=== PATIENT | female | born 1960 ===

== ENCOUNTER 2024-06-12 05:26 | Day surgery (SDC) | payer OTHER ==
[2024-06-07 11:29] VITALS: BMI 27.8
[~2024-06-12 05:26] MED LIST: CYCLOPENTOLATE HCL 1% OPHTH SOLN 2 ML BOTTLE OP SCH; PHENYLEPHRINE 2.5% OPHTH SOLN 15 ML BOTTLE OP SCH; TROPICAMIDE 1% OPHTH SOLN 15 ML BOTTLE OP SCH
[2024-06-12] MEDS ORDERED: CYCLOPENTOLATE HCL 1% OPHTH SOLN 2 ML BOTTLE ONE (07:29)
[2024-06-12] MEDS ORDERED: PHENYLEPHRINE 2.5% OPTHALMIC DROP 2ML BOTTLE ONE (07:29)
[2024-06-12] MEDS ORDERED: TROPICAMIDE 1% OPHTH SOLN 15 ML BOTTLE ONE (07:29)
[2024-06-12] MEDS ORDERED: LIDOCAINE HCL/PF 2% SDV 5ML VIAL ONE (07:39)
[2024-06-12] MEDS ORDERED: EPINEPHrine 1:1000 P/F - 1 MG/ML AMP ONE (07:39)
[2024-06-12] MEDS ORDERED: BUPIVACAINE HCL/PF 0.75% 10 ML VIAL ONE (07:39)
[2024-06-12] MEDS ORDERED: LIDOCAINE HCL/PF 1% SDV 5ML VIAL ONE (07:39)
[2024-06-12] MEDS ORDERED: POVIDONE-IODINE 5% OPHTHALMIC PREP 30 ML SOLUTION ONE (07:40)
[2024-06-12] MEDS ORDERED: TRYPAN BLUE 0.5 ML DISP.SYRIN ONE (07:40)
[2024-06-12] MEDS: CYCLOPENTOLATE HCL 1% OPHTH SOLN 2 ML BOTTLE OP SCH (07:45)
[2024-06-12] MEDS: POLYMYXIN B SULFATE/TMP 10 ML OPHTHALMIC SOLUTION OD SCH (07:52)
[2024-06-12] MEDS: TROPICAMIDE 1% OPHTH SOLN 15 ML BOTTLE OP SCH (07:52)
[2024-06-12] MEDS: PHENYLEPHRINE 2.5% OPHTH SOLN 15 ML BOTTLE OP SCH (07:52)
[2024-06-12] MEDS ORDERED: CYCLOPENTOLATE HCL 1% OPHTH SOLN 2 ML BOTTLE OP SCH (08:00)
[2024-06-12] MEDS ORDERED: PROPOFOL 20 ML ONE (08:50)
[2024-06-12] MEDS ORDERED: TRIAMCINOLONE ACET 40MG/1ML VIAL ONE (08:58)
[2024-06-12] MEDS: LIDOCAINE HCL/PF 2% SDV 5ML VIAL INF ONE ×2 (09:19)
[2024-06-12] MEDS: BUPIVACAINE HCL/PF 0.75% 10 ML VIAL RB ONE ×2 (09:19)
[2024-06-12] MEDS: POVIDONE-IODINE 5% OPHTHALMIC PREP 30 ML SOLUTION OD ONE ×2 (09:21)
[2024-06-12] MEDS: LIDOCAINE HCL 1% PRESERVATIVE FREE - 30ML VIAL IO ONE ×2 (09:28)
[2024-06-12] MEDS: TRYPAN BLUE 0.5 ML DISP.SYRIN IO ONE ×2 (09:29)
[2024-06-12] MEDS: CHONDROITIN SU A/HYALUR SOD 1 KIT IO ONE ×3 (09:30)
[2024-06-12] MEDS: BSS (NA/CA/MG/K) BALANCED SALT SOLUTION OPHTH SOLN 15 ML BOTTLE IO ONE ×2 (09:31)
[2024-06-12] MEDS: EPINEPHrine 1:1000 P/F - 1 MG/ML AMP IO ONE ×3 (09:37)
[2024-06-12] MEDS: MANNITOL 25% 12.5 GM/50 ML VIAL IVPB ONE ×3 (09:45→10:20)
[2024-06-12] MEDS: TRIAMCINOLONE ACETONIDE 40 MG/ML 10 ML VIAL NR ONE ×2 (10:44)
[2024-06-12] MEDS ORDERED: ACETAMINOPHEN 325 MG TABLET (FP) ONE (11:04)
[2024-06-12] MEDS: ACETAMINOPHEN 325 MG TABLET (FP) PO PRN (11:09)
[2024-06-12] MEDS: SODIUM CHLORIDE 0.9% 500 ML INFUS.BAG IV ONE ×4 (12:30→14:15)
[2024-06-12] MEDS: oxyCODONE HCL 5 MG TABLET PO ONE (12:54)
[2024-06-12] MEDS ORDERED: oxyCODONE HCL 5 MG TABLET ONE (12:54)
[2024-06-12] MEDS ORDERED: BSS (NA/CA/MG/K) BALANCED SALT SOLUTION OPHTH SOLN 15 ML BOTTLE ONE (13:22)
[2024-06-12 15:18] VITALS: RESP 18
[2024-06-12 16:19] VITALS: BP 91/56; PULSE 62; TEMP 97.7
== END 2024-06-12 17:30 | disposition home or self-care (01) ==
LOC: JASU-SURG 05:26
PROVIDERS: ATTEND Ophthalmology
PROC: 08RJ3JZ Replacement of Right Lens with Synthetic Substitute, Percutaneous Approach (ICD-10-PCS; principal; 2024-06-12 09:00)
DX: H26.9 Unspecified cataract (principal)
CPT/HCPCS: 93005; 93010; 94760; V2632